=== PATIENT | male | born 1990 | race Two or more races ===

== ENCOUNTER 2016-07-24 15:53 | Emergency (ER) | payer SELFPAY ==
[~2016-07-24] VITALS: Ht 180.3 cm; Wt 68.0 kg
[2016-07-24 17:10] LABS: Basophils # (auto) 0 uL; Basophils % (auto) 0.5 % (0.0-2.0); Eosinophils # (auto) 0.1 uL; Eosinophils % (auto) 1.2 % (0.0-7.0); Hematocrit 49.1 % (41.0-53.0); Lymphocytes % (auto) 22.9 % (10.0-50.0); Mean Corpuscular Hemoglobin 29.7 pg (28.0-32.0); Mean Corpuscular Hgb Conc. 32.5 g/dL (32.0-36.0); Mean Corpuscular Volume 91.3 fL (80.0-100.0); Mean Platelet Volume 8.8 fL (7.4-10.4); Monocytes # (auto) 0.8 uL; Monocytes % (auto) 9.6 % (0.0-12.0); Neutrophils # (auto) 5.7 uL; Neutrophils % (auto) 65.8 % (37.0-80.0); Platelet Count (auto) 237 10^3/uL (140-450); Red Cell Distribution Width 12.8 % (11.6-16.0); White Blood Cell 8.7 10^3/uL (4.4-10.8)
[2016-07-24 17:14] LABS: Urine Bilirubin Negative (Negative); Urine Blood Negative /uL (Negative); Urine Color Yellow (Yellow); Urine Glucose Normal (Normal); Urine Ketone Negative (Negative); Urine Mucus FEW (None Seen); Urine Nitrite Negative (Negative); Urine RBC 1 /hpf (0 - 3); Urine Urobilinogen Normal (Negative)
[2016-07-24 17:35] LABS: Albumin 3.8 g/dL (3.4-5.0); BUN/Creatinine Ratio 15.1; Calcium 8.2 mg/dL (8.5-10.1); Potassium 3.8 mmol/L (3.5-5.1)
[2016-07-24 17:37] LABS: Total Protein 7.5 g/dL (6.4-8.2)
[2016-07-25 02:56] VITALS: BP 112/60
[2016-07-25] MEDS ORDERED: cefTRIAXone SOD 1,000 MG VL ONE (03:55)
[2016-07-25] MEDS ORDERED: cefTRIAXone W LIDOCAINE 1 GM IM IM ONE (04:00)
== END 2016-07-25 04:20 | disposition home or self-care (01) ==
LOC: ER 15:57
DX: N39.0 Urinary tract infection, site not specified (principal); R59.1 Generalized enlarged lymph nodes
CPT/HCPCS: 36415; 80053; 81001; 85025; 96372; 99284; J0696

== ENCOUNTER 2023-01-10 00:56 | Emergency (ER) | payer SELFPAY ==
[~2023-01-10] VITALS: Ht 180.3 cm; Wt 86.4 kg
[2023-01-10 01:00] VITALS: BP 144/90; PULSE 108; RESP 19; O2SAT 98
== END 2023-01-10 04:43 | disposition left against medical advice (07) ==
LOC: ER 00:59
DX: R53.1 Weakness (principal); H57.13 Ocular pain, bilateral; R68.83 Chills (without fever); Z53.21 Procedure and treatment not carried out due to patient leaving prior to being seen by health care provider